=== PATIENT | female | born 1990 | race Two or more races ===

== ENCOUNTER 2022-08-04 09:11 | Outpatient (CLI) | payer OTHER | END 2022-08-04 09:17 | disposition home or self-care (01) | LOC: SONOGRAMA 09:11 | PROVIDERS: ATTEND Pathology Anatomic Pathology | DX: D34 Benign neoplasm of thyroid gland (principal); E04.9 Nontoxic goiter, unspecified ==

== ENCOUNTER 2023-06-16 10:02 | Outpatient (CLI) | payer OTHER | END 2023-06-16 10:11 | disposition home or self-care (01) | LOC: RX STUDY 10:02 | PROVIDERS: ATTEND Obstetrics & Gynecology Reproductive Endocrinology | DX: N93.0 Postcoital and contact bleeding (principal) ==